=== PATIENT | female | born 1935 | race Caucasian/White ===

== ENCOUNTER → 2024-02-08 | Outpatient (CLI) | payer MEDICARE, MEDICAID, SELFPAY ==
--- NOTE | 2024-02-08 14:10 | RAD_ITS ---
STUDY: X-RAY - LUMBOSACRAL SPINE REASON FOR EXAM: Female, 88 years old. Back pain. TECHNIQUE: 6 view(s) of the lumbosacral spine, including lateral flexion and extension views, were obtained. COMPARISON: None FINDINGS: Osteopenia. Normal lordosis. Moderate levoscoliosis. 8 mm of anterolisthesis of L4 on L5. Diffuse mild lower thoracic and lumbosacral facet sclerosis. Limited flexion and extension with no abnormal motion. Diffuse moderate intervertebral disc space narrowing with small osteophytes. Vascular calcification, cholecystectomy clips and right femoral hip arthroplasty. RAD/L/S Spine w Bend Min 6 Vw IMPRESSION: Osteopenia with levoscoliosis, limited flexion and extension without abnormal motion and moderate lower thoracic and lumbosacral spondylosis. Electronically Signed: Theron Harry MD at 15:41 EDT ,
== END | disposition home or self-care (01) ==
PROVIDERS: PCP Family Medicine; Referring Provider Anesthesiology Pain Medicine; Visit Provider Anesthesiology Pain Medicine
DX: M51.37 Other intervertebral disc degeneration, lumbosacral region (principal)
CPT/HCPCS: 72114

== ENCOUNTER → 2024-03-09 | Outpatient (CLI) | payer MEDICARE, MEDICAID, SELFPAY ==
[2024-03-09 17:37] LABS: Absolute Lymphocyte Count 1.72 X10^3/uL (0.83-4.51); Absolute Neutrophil Count 6.8 X10^3/uL (2.0-7.7); Basophil# 0.08 X10^3/uL; Basophil% 0.8 % (0-1); Eosinophil# 0.06 X10^3/uL; Eosinophils% 0.6 % (0-5); Hematocrit 47.8 % (37-47); Hemoglobin 14.7 g/dL (12.0-15.0); Lymphocyte # 1.72 X10^3/ul (0.83-4.51); Lymphocyte % 17.9 % (19-41); Mean Corp Hgb Conc 30.8 g/dL (32-36); Mean Corpuscular Hgb 33.8 pg (27.0-32.0); Mean Corpuscular Volume 109.9 fL (81-99); Mean Platelet Vol. 10.5 fl (6.2-12.0); Monocyte# 0.84 X10^3/uL; Monocyte% 8.8 % (0-10); NRBC Flagged by Analyzer 0 % (0-5); Neutrophil # 6.78 X10^3/uL (2.7-7.7); Neutrophil % 70.6 % (47-70); Platelet Count 197 K/mm3 (150-450); RBC Distribution Width CV 13.6 % (11.6-14.6); RBC Distribution Width SD 55.4 fl (35.1-43.9); Red Blood Count 4.35 M/mm3 (4.2-5.4); White Blood Count 9.6 K/mm3 (4.4-11.0)
[2024-03-09 17:55] LABS: Vitamin B12 517 pg/mL (211-911)
[2024-03-09 18:30] LABS: ALB/GLOB Ratio 1.2 RATIO (0.9-2.4); AST(SGOT) 19 U/L (15-37); Alanine Aminotransfer ALT/SGPT 31 U/L (13-56); Albumin, Serum 3.7 g/dL (3.2-5.0); Alkaline Phosphatase 64 U/L (45-117); Anion Gap 5 (5-15); BUN 25 mg/dL (7-18); BUN/Creat Ratio 20.5 RATIO (10-20); Calcium,Total 8.9 mg/dL (8.5-10.1); Chloride 107 mmol/L (98-107); Cholesterol 208 mg/dL (200); Creatinine, Serum 1.22 mg/dL (0.55-1.02); EST Glomerular Filtration Rate 44 mL/min (>60); Est Glom Filt Rate - Afr Amer 53 mL/min (>60); Globulin 3.2 g/dL (2.2-4.2); Glucose 122 mg/dL (74-106); High Density Lipoprotein 68 mg/dL; Potassium 5.2 mmol/L (3.5-5.1); Protein, Total 6.9 g/dL (6.4-8.2); Sodium Level 137 mmol/L (136-145); Thyroid Stim Hormone (TSH) 0.77 uIU/mL (0.358-3.74); Triglycerides 132 mg/dL; Very Low Density Lipoprotein 26 mg/dL (5-40)
== END | disposition home or self-care (01) ==
LOC: BFHLAB 14:30
PROVIDERS: PCP Family Medicine; Referring Provider Family Medicine; Visit Provider Family Medicine
DX: I10 Essential (primary) hypertension (principal); I25.10 Atherosclerotic heart disease of native coronary artery without angina pectoris; E78.5 Hyperlipidemia, unspecified; E53.8 Deficiency of other specified B group vitamins
CPT/HCPCS: 36415; 80053; 80061; 82607; 84443; 85025

== ENCOUNTER → 2024-03-27 | Outpatient (CLI) | payer MEDICARE, MEDICAID, SELFPAY ==
--- NOTE | 2024-03-27 09:45 | NM_ITS ---
CLINICAL: 88-year-old female with history of painful right hip arthroplasty. LIMITED 99m Tc MDP THREE PHASE BONE SCINTIGRAPHY COMPARISON: Plain film radiograph report right hip 03/15/2024 FINDINGS: Following the intravenous administration of 26.3 mCi of 99m Tc MDP, three-phase bone acquisitions of the pelvis reveal: 1. The flow and immediate static blood pool acquisitions demonstrate normal arterial and venous blood pool phase distribution of the radiotracer. 2. Delayed images depict subtle increased uptake noted in the lesser trochanteric and distal femoral components of the right hip prosthesis. 3. Facilitated uptake is noted in the fifth lumbar vertebra posteriorly on the left and posterior midline sacrum, the inferior posterior acetabulum of the left hip. 4. The remaining limited skeletal structures are scintigraphically unremarkable. NM/Bone Scan Limited Area IMPRESSION: 1. The subtle increase in tracer uptake noted in the lesser trochanteric and distal femoral components of the painful right hip arthroplasty may represent a minimal component of loosening. If infection is a diagnostic consideration, correlation with labeled leukocyte imaging is recommended. 2. Degenerative arthrosis is defined in the fifth lumbar vertebra and sacrum, the right hip. Electronically Signed: Chirag Saul DO at 9:00 EDT ,
== END | disposition home or self-care (01) ==
LOC: NM 09:42
PROVIDERS: PCP Family Medicine; Referring Provider Orthopaedic Surgery; Visit Provider Orthopaedic Surgery
DX: Z96.649 Presence of unspecified artificial hip joint (principal)
CPT/HCPCS: 78300; A9503

== ENCOUNTER → 2024-03-31 | Outpatient (CLI) | payer MEDICARE, MEDICAID, SELFPAY ==
--- NOTE | 2024-03-31 05:56 | NM_ITS ---
CLINICAL: 88-year-old female with history of painful right hip arthroplasty and potentially positive bone scintigraphy dated 03/27/2024. LIMITED 99m Tc HMPAO LABELED LEUKOCYTE EXAMINATION COMPARISON: Bone scintigraphy study dated 03/27/2024 FINDINGS: Following the intravenous administration of 24.5 mCi of 99m Tc HMPAO labeled leukocytes, image acquisitions of the pelvis at approximately 2.0 hours post radiopharmaceutical administration reveal: 1. Most readily apparent in the posterior projection, increased uptake is noted in the lesser trochanteric and distal femoral aspects of the painful right hip prosthesis correlating with findings on bone scintigraphy dated 03/27/2024. 2. No other definitive scintigraphic abnormalities are defined. NM/Inflammatory Process Limited IMPRESSION: 1. The increase in tracer uptake noted in the lesser trochanteric and distal femoral aspects of the painful right hip prosthetic device may represent low-grade prosthetic sepsis. Correlation with technetium sulfur colloid imaging is recommended. Electronically Signed: Chirag Saul DO at 8:48 EDT ,
== END | disposition home or self-care (01) ==
LOC: NM 06:03
PROVIDERS: PCP Family Medicine; Referring Provider Orthopaedic Surgery; Visit Provider Orthopaedic Surgery
DX: Z96.649 Presence of unspecified artificial hip joint (principal)
CPT/HCPCS: 78801; A9521

== ENCOUNTER → 2024-04-10 | Outpatient (CLI) | payer MEDICARE, MEDICAID, SELFPAY ==
[2024-04-10 17:41] LABS: Absolute Lymphocyte Count 1.78 X10^3/uL (0.83-4.51); Absolute Neutrophil Count 5.4 X10^3/uL (2.0-7.7); Basophil# 0.08 X10^3/uL; Eosinophil# 0.15 X10^3/uL; Eosinophils% 1.8 % (0-5); Hematocrit 46.3 % (37-47); Hemoglobin 14.2 g/dL (12.0-15.0); Lymphocyte # 1.78 X10^3/ul (0.83-4.51); Lymphocyte % 21.5 % (19-41); Mean Corp Hgb Conc 30.7 g/dL (32-36); Mean Corpuscular Hgb 33.4 pg (27.0-32.0); Mean Corpuscular Volume 108.9 fL (81-99); Mean Platelet Vol. 10.4 fl (6.2-12.0); Monocyte# 0.82 X10^3/uL; Monocyte% 9.9 % (0-10); NRBC Flagged by Analyzer 0 % (0-5); Neutrophil # 5.37 X10^3/uL (2.7-7.7); Neutrophil % 65.1 % (47-70); Platelet Count 281 K/mm3 (150-450); RBC Distribution Width CV 13.4 % (11.6-14.6); RBC Distribution Width SD 54.3 fl (35.1-43.9); Red Blood Count 4.25 M/mm3 (4.2-5.4); White Blood Count 8.3 K/mm3 (4.4-11.0)
[2024-04-10 17:57] LABS: Erythrocyte Sedimentation Rate 30 mm/hr (0-30)
[2024-04-10 18:19] LABS: CRP 6.53 mg/L (0.0-3.0)
== END | disposition home or self-care (01) ==
LOC: BFHLAB 14:41
PROVIDERS: PCP Family Medicine; Referring Provider Specialist; Visit Provider Specialist
DX: I10 Essential (primary) hypertension (principal)
CPT/HCPCS: 36415; 85025; 85652; 86140

== ENCOUNTER 2024-06-06 13:30 | Outpatient (RCR) | payer MEDICARE, MEDICAID, SELFPAY ==
--- NOTE | 2024-04-24 16:05 | HP.PTEVAL_ITS ---
Patient's Visit Information Visit Information Visit Information: DAMON DOUGLAS is a 88 year old F referred to Physical Therapy by Dr. Jorge Alberto Boyd MD with a diagnosis of PAIN DUE TOINTERNAL ORTHOPEDIC PROSTHESIS ,OA RIGHT KNEE. Date of Evaluation: 04/24/24 Physical Therapist: Kumar Wilson, PT, Cert MDT, OCS Visit Plan Frequency: 2x /Week Duration: 4 Weeks Plan: H/O THR 2017 PT INTERVENTIONS AQUATIC THERAPY GRADED ROM HIPS,STRENGTHENING QUADS/HAMS/HIP ,ENDURANCE EX'S AND ACTIVITY MODIFICATION Subjective Subjective: This 88 y/o female presents to physical therapy with pain in old THR right in 2017. Patient has noticed pain in right groin and right buttuck to thigh progressively worse past 6-8 months. Patient using fww. Seen Family DR john blankenshipended DR Boyd and has been seeing pain management with injections in back and knee. Seen Dr dangelos therapy to get left leg stronger . Patient had x-rays of hip. Dr thinks possible right hip is loosening. Aggravating factors walking/standing affects housEwork tasks and ADLS. Alleviating factors rest sitting . Medication Vicodin. Patient has [employer] on Weds . Patient is able to dress and bathing. Patient has meals on wheels on wheels. [facility] . Patient lives in 1 story home with no step . Patient has tub /shower setup. Patient has W/C and fww/rollator ,bedside commode lift chair and shower chair. Patient denies paresthesia/tingling . RTD in 6weeks. Patient affects QOL and function. VOCATION: retired SOCIAL: Lives with son Pain Right Hip: Pain Intensity (Out of 10): 10 Pain Intensity Range: 10 Objective Objective: POSTURE: mild forward posture NEURO: denies paresthesia/tingling GAIT: ambulates with fww short distances with supervision BALANCE: fair + with fww PALAPTION: tender lateral hip AROM : right hip flexion 80 degrees ,left hip flexion 100 degrees ,hip abduction left 40 degrees ,right 20 degrees knee flexion 100 degrees left 120 degrees MMT: quads/hams 4-/5 ,right hip flexion 3+/5 ,left 4-/5 ,ankle 4/5 Balance/Special Test Scores Lower Extremity Functional Score: 10 Goals Goal 1:: Patient to be I with Aquatic therapy program Goal Time Frame: 4-6 Weeks Goal 2:: Patient to demonstrate 40% improvement with less pain and improved function Goal Time Frame: 4-6 Weeks Goal 3:: Patient to improve LFES score by 5 points to improve QOL Goal Time Frame: 4-6 Weeks Goal 4:: Patient improve strength hip to 4-/5 to improve gait Goal Time Frame: 4-6 Weeks Rehabilitation Potential Physical Therapy Diagnosis: This patient has right hip pain with decrease gait ,weakness ,decrease ROM impairs ADLS thus benefit from skilled PT Rehabilitation Potential: Fair Anticipated Interventions Patient/Client Instruction: Educate patient on: Condition and Plan of Care For the Purpose of:: To decrease pain, To increase ROM, To improve muscle performance and motor function, To improve ability to perform ADL's, To increase tolerance to activity/condition/position, To improve ability of physical actions for home/community/work/leisure, To improve gait and locomotor functions, To improve health of tissue, To decrease soft tissue restriction, To reduce risk of recurrence, To improve self management and To improve tolerance to ADL's Therapeutic Exercise to Include: Strength training, Endurance training, Balance training, In an aquatic setting and Active ROM Comment: QUADS/HAMS/HIP For the Purpose of:: To decrease pain, To decrease swelling/inflammation, To improve muscle performance and motor function, To increase tolerance to activity/condition/position, To improve ability of physical actions for home/community/work/leisure, To improve health of tissue, To decrease soft tissue restriction, To increase flexibility/ROM, To improve endurance, To improve balance and To improve tolerance to ADL's Text: Thank you for the opportunity to evaluate your patient. For Medicare and Medicare HMO plans, please review the plan of care and approve it. It will need to be FAXED BACK to us at [phone] for Medicare purposes. For Medicare only, by signing this I certify the plan of care. Please let me know if there are questions or concerns regarding this plan of care. Physician Signature: Date:
--- NOTE | 2024-06-22 18:21 | HP.PTDCSUM ---
Discharge Summary D/C summary: It has been my pleasure to treat DAMON DOUGLAS referred by Dr. Jorge Alberto Boyd MD, with the diagnosis of PAIN DUE TO INTERNAL ORTHOPEDIC PROSTHESIS ,OA RIGHT KNEE for a total of 12 visit(s). Discharge Date: Please see the following information for a summary of their discharge status. Subjective Subjective: Patient plans to get MRI and CT SCAN then of back and hip then follow up with MD. Pain is worse with Aquatic therapy next day , So based on these factors wants to be D/C Pain Right Hip: Pain Intensity (Out of 10): 10 R knee: Pain Intensity (Out of 10): 10 Overall Improvement % Improvement: 5 Objective Objective/Function: POSTURE: mild forward posture NEURO: denies paresthesia/tingling GAIT: ambulates with fww short distances with supervision BALANCE: fair + with fww PALAPTION: tender lateral hip AROM : right hip flexion 80 degrees ,left hip flexion 100 degrees ,hip abduction left 40 degrees ,right 20 degrees knee flexion 100 degrees left 120 degrees MMT: quads/hams 4-/5 ,right hip flexion 3+/5 ,left 4-/5 ,ankle 4/5 Goals Goal 1:: Patient to be I with Aquatic therapy program Goal Progress: Not Progressing Goal 2:: Patient to demonstrate 40% improvement with less pain and improved function Goal Progress: Not Progressing Goal 3:: Patient to improve LFES score by 5 points to improve QOL Goal Progress: Not Progressing Goal 4:: Patient improve strength hip to 4-/5 to improve gait Goal Progress: Not Progressing Goal Progress: Not Progressing Plan Plan: D/C RTD D/C Information d/c sentence: If there are questions or concerns regarding this patient's physical therapy, please feel free to call me at [phone]. Thank you for the referral of this patient. Sincerely, Kumar Wilson, PT, Cert MDT, OCS Balance/Gait/Functional tests Balance/Special Test Scores Lower Extremity Functional Score: 10 Improvement % Improvement: 5
== END 2024-06-06 19:00 | disposition home or self-care (01) ==
LOC: PT 13:30
PROVIDERS: PCP Family Medicine; Referring Provider Specialist; Visit Provider Specialist
DX: Z96.641 Presence of right artificial hip joint (principal); M17.11 Unilateral primary osteoarthritis, right knee; T84.84XD Pain due to internal orthopedic prosthetic devices, implants and grafts, subsequent encounter
CPT/HCPCS: 97110; 97113; 97162